=== PATIENT | female | born 1975 | race Caucasian/White ===

== ENCOUNTER 2016-11-27 19:14 | Emergency (ER) | payer MEDICAID ==
[2016-11-27] MEDS ORDERED: Bacitracin pkt 1 gm Pkt TP ONE (20:13)
[2016-11-27] MEDS ORDERED: Bacitracin pkt 1 gm Pkt TP STA (20:16)
--- NOTE | 2016-11-27 20:19 | ED Physician Chart ---
Chief Complaint/HPI - Patient Information Date Seen:: 11/27/16 Time Seen:: 19:18 Chief Complaint:: thumb laceration History of Present Illness:: 41-year-old female with acute, moderate to severe, left thumb laceration that happened about 1 hour prior to arrival. She was cutting food with a kitchen knife and accidentally cut her left thumb. Has associated acute, constant, throbbing, non-radiating, moderate, 6 out of 10, left thumb pain. Tetanus is not up-to-date. Reports good sensation to base of the left thumb to the distal tip. Allergies:: Allergies Allergy/AdvReac Type Severity Reaction Status Date / Time No Known Allergies Allergy Verified 11/27/16 19:29 Vitals:: Vital Signs - 8 hr 11/27/16 19:20 Temp 98.6 F HR 60 RR 18 BP 115/66 O2 Sat % 100 Historian:: Patient Review:: Nurse's Note Reviewed Review of Systems - Review of Systems Other: Complete system review otherwise unremarkable except as noted in history of present illness. Past Medical History - Past Medical History Past Medical History: Seizures Family History: None Social History: Non Smoker, No Alcohol, No Drug Use, Employed Surgical History: None Psychiatricy History: None Medication: Reviewed Family Medical History - Family Member Mother History Unknown: Yes Ethnicity: Non- Physical Exam - Physical Examination Other:: INITIAL VITAL SIGNS: Reviewed by me GENERAL: Alert and interactive. No acute distress HEAD: Head is normocephalic and atraumatic EYES: EOMI. PERRL. No scleral icterus. No conjunctival injection ENT: Moist mucous membranes. NECK: Supple. No masses. Full range of motion RESPIRATORY: No tachypnea. Clear breath sounds bilaterally. No wheezing, rales, or rhonchi CV: Regular rate and rhythm. No murmurs, rubs, or gallops ABDOMEN: Soft, non-distended, non-tender. No guarding. No rebound. No masses. EXTREMITIES: Left thumb has a 3.5 cm laceration in a U shape over the dorsum of the IP joint. Good neurovascular status to the distal tip. SKIN: Warm and dry. No obvious rashes. NEUROLOGIC: Alert and oriented. Face is symmetric. Speech is normal. Moves all extremities equally. Motor and sensory distally intact. Assessment - Procedures Procedures:: Laceration Repair Laceration Repair by me: Anesthesia: 1% lidocaine digital block and locally Location: Left thumb dorsum IP joint area Tendon/Joint/Nerves: No injury Foreign body: None detected after copious irrigation and exploration Technique: 4-0 nylon, Simple Interrupted Sutures 3, vertical mattress 3 Complexity: No subcutaneous sutures/mucosal repair/edge excision Post Closure Length: 3.5 cm Patient's bleeding was easily controlled in the department and there is no indication of anemia. No evidence of compartment syndrome, neurologic injury, vascular injury, open joint, tendon laceration, or foreign body. Patient is appropriate for outpatient follow up. 48 hour wound check. Scar minimization instructions given. Informed Consent: Procedure/risk/benefits explained by MD: Yes ED Septic Shock - . Is Septic Shock (SBP<90, OR Lactate>4 mmol\L) present?: No - <6hrs of presentation: Vital Signs: Vital Signs - 8 hr 11/27/16 19:20 Temp 98.6 F HR 60 RR 18 BP 115/66 O2 Sat % 100 Reassessment (Disposition) - Reassessment Reassessment:: Laceration to left thumb. Repair done. 3 simple interrupted, 3 vertical mattress with 4-0 nylon. A digital block to left thumb. Tolerated well. Gave recommendation to follow-up with PCP for wound check in 2-3 days. Provided prophylactic antibiotic to be initiated if wound shows signs of infection. Return to ER precautions given. Suture removal 7-10 days. Patient understands and agrees the plan. Reassessment Condition:: Improved - Diagnosis Diagnosis:: Laceration, left thumb, acute, first visit - Aftercare/Follow up Instructions Aftercare/Follow-Up Instructions:: Counseled pt regarding lab results/diagnosis & need follow up, Refer to Discharge Instructions Medication Prescribed:: Augmentin - Patient Disposition Discharge/Transfer:: Home Time:: 20:17 Condition at Disposition:: Improved ED Discharge Plan - Patient Disposition Admit/Discharge/Transfer: PT DISCHARGED HOME Condition at Disposition: Improved Instructions: Laceration Care, Adult, Sutured Wound Care Additional Instructions: Wound check 2-3 days Begin antibiotics if symptoms of infection develop Suture removal in 7-10 days
== END 2016-11-27 20:25 | disposition home or self-care (01) ==
LOC: ER 19:14
DX: S61.012A Laceration without foreign body of left thumb without damage to nail, initial encounter (principal); W26.0XXA Contact with knife, initial encounter; Y93.89 Activity, other specified; Y92.010 Kitchen of single-family (private) house as the place of occurrence of the external cause; Y99.8 Other external cause status
CPT/HCPCS: 99283; 12002; 90715; Z7610; A4217; J2001; Z7502